=== PATIENT | male | born 2000 | race Caucasian/White ===

== ENCOUNTER 2021-10-26 22:30 | Outpatient (CLI) | payer OTHER ==
--- NOTE | 2021-10-27 08:42 | Ultrasound Report ---
PROCEDURE: Testicle INDICATIONS: Spermatocele left TECHNIQUE: Real-time scanning was performed of the scrotum and testicles, with image documentation. Color and p ulse Doppler interrogation was performed of both testicles. COMPARISON: None. FINDINGS: Right: Testicle is normal in size at 3.4 x 2.6 x 2 cm, and homogenous in echotexture. Epididymis is normal in overall size and morphology. Hypoechoic lesion in the right epididymis measuring up to 2. 1 mm, most consistent with a cyst or spermatocele. No hydrocele or varicoceles. Single echogenic foc us, compatible with microlithiasis. Overlying scrotal skin is normal in thickness. Left: Testicle is normal in size at 3.7 x 2.7 x 2 cm, and homogeneous in echotexture. Epididymis is normal in overall size and morphology. No hydrocele. Small varicocele is noted. Overlying scrotal skin is normal in thickness. Doppler: Color and pulse Doppler demonstrate normal and symmetric arterial flow in both testicles. IMPRESSION: 1.No significant abnormality. Reviewed by: Jason Davey MD on 10/27/2021 8:41 AM PST Approved by: Jason Davey MD on 10/27/2021 8:41 AM PST Station ID: [id number]
== END 2021-10-26 22:31 | disposition home or self-care (01) ==
LOC: DI 22:30
PROVIDERS: ATTEND Physician Assistant Medical
DX: N43.40 Spermatocele of epididymis, unspecified (principal)